=== PATIENT | female | born 1975 | race African-American/Black ===

== ENCOUNTER 2017-12-05 10:49 | Emergency (ER) | payer BC ==
[~2017-12-05] VITALS: Ht 157.5 cm; Wt 82.6 kg
--- NOTE | ~2017-12-05 | EKG ---
[place] [address] [address] [place] [address] ELECTROCARDIOGRAM REPORT Name: TANYA DEVINE Room #: [facility]#: [id number] Admission: 12/05/17 Attend Phys: Discharge: 12/05/17 Date of : 73 Report #: [id number] THIS REPORT FOR: //name// [facility] ED Test Date: 2017-12-05 Test Time: 11:48:03 Pat Name: TANYA DEVINE Department: Room: Gender: F Web Site Specialist: mikayla : 1975 Requested By: Bob Godoy Order Number: [id number] MD: Eladio Whaley Measurements Intervals Alexander Rate: 103 P: 63 HI: 127 QRS: 53 QRSD: 88 T: 23 QT: 379 QTc: 496 Interpretive Statements Sinus tachycardia Borderline prolonged QT interval Baseline wander in lead(s) V3 No previous ECG available for comparison Electronically Signed On 12-06-2017 8:19:05 CDT by Eladio Whaley [email or web address] <ELECTRONICALLY SIGNED> By: Eladio Whaley MD, [facility] 12/06/17 0819 [id number] [id number] Eladio Whaley MD, FACC /EPI
[~2017-12-05 10:49] MED LIST: TOPAMAX 100 MG100 MG PO
[2017-12-05 11:30] LABS: HEMATOCRIT 37.4 % (37.0-47.0); HEMOGLOBIN 12.6 gm/dL (12.0-15.0); MCH 30.2 pg (26.0-34.0); MCHC 33.8 g/dL (28.0-37.0); MCV 89.4 fL (80.0-100.0); RBC 4.19 mil/uL (4.20-5.00); RDW 12.9 % (10.5-14.5); WBC 4.1 thou/uL (4.0-11.0)
[2017-12-05 11:42] LABS: ANION GAP 12 mmol/L (7-16); BUN 14 mg/dL (7-18); CALCIUM 9.6 mg/dL (8.5-10.1); CHLORIDE 102 mmol/L (98-107); CO2 24 mmol/L (21-32); CREATININE 1.1 mg/dL (0.6-1.0); GLUCOSE 93 mg/dL (74-106); POTASSIUM 3.1 mmol/L (3.5-5.1); SODIUM 138 mmol/L (136-145)
[2017-12-05 11:51] LABS: TROPONIN-I < 0.04 ng/mL (<0.06)
[2017-12-05] MEDS ORDERED: PHENTERMINE H37.5 MG PO (12:02)
[2017-12-05] MEDS ORDERED: HYDROCHLOROTHIA25 M2 PO (12:02)
[2017-12-05] MEDS ORDERED: COZAAR 25 MG TA25 M2 PO (12:02)
== END 2017-12-05 15:33 | disposition home or self-care (01) ==
LOC: ER 10:49
PROVIDERS: Emergency Medicine
DX: R53.1 Weakness (principal)